=== PATIENT | male | born 1955 | race Caucasian/White ===

== ENCOUNTER 2017-05-30 09:30 | Day surgery (SDC) | payer MEDICARE, OTHER ==
[~2017-05-30] VITALS: Ht 177.8 cm; Wt 96.6 kg
[~2017-05-30 09:30] MED LIST: ASPI81CH PO; ATOR40TA PO; BICA50 PO; CVS CALCIUM 501 EAC2 PO; DOXA4 PO; FINA5 PO; HYDR1TAB94 PO; Keppra750 MG PO; LISHYD1012 PO; LOPE2C PO; LOSHYD PO; LUPRON DEPOT3.75 MG INJ; METO25 PO; MULTI VITAMIN1 EACH PO; Ondansetron Odt8 MG PO; Percocet 5-3251 EACH PO; Prozac20 MG; Prozac20 MG PO; ZESTORETIC 20-1 EACH PO
[2017-05-30] MEDS ORDERED: LISI20 PO (10:30)
== END 2017-05-30 22:42 | disposition home or self-care (01) ==
LOC: ORSCMMR 09:30 → ORD 10:45 → ORSCMMR 10:45
PROVIDERS: Surgery
PROC: 02HV33Z Insertion of Infusion Device into Superior Vena Cava, Percutaneous Approach (ICD-10-PCS; principal; 2017-05-30 10:45)
DX: C61 Malignant neoplasm of prostate (principal); C79.51 Secondary malignant neoplasm of bone; I10 Essential (primary) hypertension; Z79.82 Long term (current) use of aspirin; Z79.899 Other long term (current) drug therapy
CPT/HCPCS: 77001; C1788; J0690; J1100; J1642; J2250; J2370; J2405; J3010; J7120

== ENCOUNTER 2017-06-11 00:20 | Day surgery (SDC) | payer MEDICARE, OTHER ==
[~2017-06-11 00:20] MED LIST changes: +LISI20 PO
[2017-06-11 11:53] LABS: Hematocrit 34.9 % (37.0-53.0); Hemoglobin 11.8 g/dL (13.5-17.5); Mean Corpuscular HGB 33.6 pg (26.0-34.0); Mean Corpuscular HGB Conc 33.8 g/dL (31.5-36.5); Mean Corpuscular Volume 99 fL (80-100); Mean Platelet Volume 9.7 fL (9.1-12.4); Platelet Count 147 K/mm3 (150-400); RDW Coefficient Variation 13.5 % (11.7-14.2); RDW Standard Deviation 49.1 fL (35.1-46.3); Red Blood Cell Count 3.51 M/mm3 (4.30-5.90); White Blood Cell Count 2.05 K/mm3 (4.00-11.30)
[2017-06-11 12:04] LABS: Alanine Aminotransfer (ALT/SGP 17 U/L (12-78); Albumin/Globulin Ratio 0.8 (0.8-1.8); Alk Phos 154 U/L (50-136); Anion Gap 11 mmol/L (6-16); Aspartate Aminotrans (AST/SGOT 14 U/L (12-37); Bilirubin, Total 0.8 mg/dL (0.1-1.0); Blood Urea Nitrogen 12 mg/dL (8-24); Bun/Creatinine Ratio 16.5 (12.0-20.0); CO2, Blood 26 mmol/L (21-32); Calcium, Blood 8.5 mg/dL (8.5-10.1); Chloride, Blood 98 mmol/L (98-108); Creatinine, Blood 0.73 mg/dL (0.60-1.20); Glomerular Filtration Rate >60 (60-); Glucose, Blood 99 mg/dL (70-99); Potassium, Blood 3.5 mmol/L (3.5-5.5); Sodium, Blood 135 mmol/L (136-145)
[2017-06-11] MEDS ORDERED: ZESTORETIC 20-121 EA PO (12:06)
[2017-06-11 12:21] LABS: BAND PERCENT MAN 17 % (0-8); BASOPHILS ABSOLUTE MAN 0.02 K/mm3 (0.00-0.23); BASOPHILS PERCENT MAN 1 % (0-2); EOSINOPHILS ABSOLUTE MAN 0.04 K/mm3 (0.00-0.68); EOSINOPHILS PERCENT MAN 2 % (0-6); LYMPHOCYTES % ATYPICAL MANUAL 1 % (0-0); LYMPHOCYTES ABSOLUTE MAN 0.61 K/mm3 (0.84-5.20); LYMPHOCYTES PERCENT MAN 29 % (21-46); METAMYELOCYTE ABSOLUTE MAN 0.02 K/mm3 (0.00-0.00); METAMYELOCYTE PERCENT MAN 1 % (0-0); MONOCYTES ABSOLUTE MAN 0.16 K/mm3 (0.16-1.47); MONOCYTES PERCENT MAN 8 % (4-13); NEUTROPHILS ABSOLUTE MAN 1.18 K/mm3 (1.96-9.15); SEG NEUTROPHILS PERCENT MAN 41 % (41-73); TOTAL CELLS COUNTED 100
== END 2017-06-11 11:45 | disposition home or self-care (01) ==
LOC: ATC 00:20
PROVIDERS: Internal Medicine Hematology & Oncology
DX: C61 Malignant neoplasm of prostate (principal); C79.51 Secondary malignant neoplasm of bone; C78.7 Secondary malignant neoplasm of liver and intrahepatic bile duct; C79.89 Secondary malignant neoplasm of other specified sites; Z95.828 Presence of other vascular implants and grafts; R97.21 Rising PSA following treatment for malignant neoplasm of prostate; Z92.3 Personal history of irradiation; Z12.5 Encounter for screening for malignant neoplasm of prostate; Z86.73 Personal history of transient ischemic attack (TIA), and cerebral infarction without residual deficits
CPT/HCPCS: 36591; 80053; 84153; 85025; G0103; J1642

== ENCOUNTER 2017-06-30 12:11 | Emergency (ER) | payer MEDICARE, OTHER ==
[~2017-06-30] VITALS: Ht 177.8 cm; Wt 90.7 kg
[~2017-06-30 12:11] MED LIST changes: +ZESTORETIC 20-121 EA PO
[2017-06-30 13:02] LABS: Hematocrit 30.7 % (37.0-53.0); Hemoglobin 10.3 g/dL (13.5-17.5); Mean Corpuscular HGB 34.6 pg (26.0-34.0); Mean Corpuscular HGB Conc 33.6 g/dL (31.5-36.5); Mean Corpuscular Volume 103 fL (80-100); Mean Platelet Volume 9.5 fL (9.1-12.4); Platelet Count 185 K/mm3 (150-400); RDW Coefficient Variation 15.4 % (11.7-14.2); RDW Standard Deviation 58.4 fL (35.1-46.3); Red Blood Cell Count 2.98 M/mm3 (4.30-5.90); White Blood Cell Count 15.02 K/mm3 (4.00-11.30)
[2017-06-30 13:28] LABS: Alanine Aminotransfer (ALT/SGP 25 U/L (12-78); Albumin, Blood 3.2 g/dL (3.4-5.0); Albumin/Globulin Ratio 0.8 (0.8-1.8); Alk Phos 135 U/L (50-136); Anion Gap 8 mmol/L (6-16); Aspartate Aminotrans (AST/SGOT 21 U/L (12-37); Bilirubin, Total 0.8 mg/dL (0.1-1.0); Blood Urea Nitrogen 14 mg/dL (8-24); Bun/Creatinine Ratio 25.8 (12.0-20.0); CO2, Blood 23 mmol/L (21-32); Calcium, Blood 8.4 mg/dL (8.5-10.1); Chloride, Blood 101 mmol/L (98-108); Creatinine, Blood 0.54 mg/dL (0.60-1.20); Globulin, Blood 3.9 g/dL (2.2-4.0); Glomerular Filtration Rate >60 (60-); Glucose, Blood 110 mg/dL (70-99); Potassium, Blood 4.1 mmol/L (3.5-5.5); Sodium, Blood 132 mmol/L (136-145); Total Protein, Blood 7.1 g/dL (6.4-8.2); Troponin I <0.015 ng/mL (0.000-0.040)
[2017-06-30 13:35] LABS: BAND PERCENT MAN 8 % (0-8); BASOPHILS PERCENT MAN 0 % (0-2); EOSINOPHILS PERCENT MAN 0 % (0-6); LYMPHOCYTES ABSOLUTE MAN 0.15 K/mm3 (0.84-5.20); LYMPHOCYTES PERCENT MAN 1 % (21-46); METAMYELOCYTE PERCENT MAN 2 % (0-0); MONOCYTES PERCENT MAN 2 % (4-13); NEUTROPHILS ABSOLUTE MAN 14.26 K/mm3 (1.96-9.15); SEG NEUTROPHILS PERCENT MAN 87 % (41-73); TOTAL CELLS COUNTED 100
[2017-06-30] MEDS ORDERED: METR250 PO (14:15)
[2017-06-30] MEDS ORDERED: PRED5 PO (14:15)
== END 2017-06-30 16:16 | disposition home or self-care (01) ==
LOC: ER 12:11
PROVIDERS: Emergency Medicine
DX: R07.9 Chest pain, unspecified (principal); G40.909 Epilepsy, unspecified, not intractable, without status epilepticus; Z79.899 Other long term (current) drug therapy; Z79.82 Long term (current) use of aspirin; Z79.52 Long term (current) use of systemic steroids; Z86.73 Personal history of transient ischemic attack (TIA), and cerebral infarction without residual deficits; Z87.891 Personal history of nicotine dependence; Z85.46 Personal history of malignant neoplasm of prostate
CPT/HCPCS: 36415; 71046; 71260; 80053; 84484; 85025; 93005; 93010; 96360; 99284; J7030; Q9967

== ENCOUNTER 2017-07-03 01:10 | Day surgery (SDC) | payer MEDICARE, OTHER ==
[~2017-07-03 01:10] MED LIST changes: +METR250 PO; +PRED5 PO
[2017-07-03 12:07] LABS: Hematocrit 30.9 % (37.0-53.0); Hemoglobin 10.2 g/dL (13.5-17.5); Mean Corpuscular HGB 33.2 pg (26.0-34.0); Mean Corpuscular Volume 101 fL (80-100); Mean Platelet Volume 9.6 fL (9.1-12.4); NRBC ABSOLUTE 0.05 K/mm3 (0.00-0.02); NRBC Auto 0.6 /100 WBC (0.0-0.2); Platelet Count 220 K/mm3 (150-400); RDW Coefficient Variation 15.1 % (11.7-14.2); RDW Standard Deviation 55.2 fL (35.1-46.3); Red Blood Cell Count 3.07 M/mm3 (4.30-5.90); White Blood Cell Count 8.88 K/mm3 (4.00-11.30)
[2017-07-03 12:21] LABS: Alanine Aminotransfer (ALT/SGP 22 U/L (12-78); Albumin, Blood 3.3 g/dL (3.4-5.0); Albumin/Globulin Ratio 0.8 (0.8-1.8); Alk Phos 133 U/L (50-136); Anion Gap 10 mmol/L (6-16); Aspartate Aminotrans (AST/SGOT 12 U/L (12-37); Bilirubin, Total 0.6 mg/dL (0.1-1.0); Blood Urea Nitrogen 14 mg/dL (8-24); Bun/Creatinine Ratio 19.4 (12.0-20.0); CO2, Blood 25 mmol/L (21-32); Calcium, Blood 8.9 mg/dL (8.5-10.1); Chloride, Blood 96 mmol/L (98-108); Creatinine, Blood 0.72 mg/dL (0.60-1.20); Globulin, Blood 3.9 g/dL (2.2-4.0); Glomerular Filtration Rate >60 (60-); Glucose, Blood 107 mg/dL (70-99); Potassium, Blood 3.5 mmol/L (3.5-5.5); Sodium, Blood 131 mmol/L (136-145); Total Protein, Blood 7.2 g/dL (6.4-8.2)
[2017-07-03 12:42] LABS: BAND PERCENT MAN 6 % (0-8); BASOPHILS PERCENT MAN 0 % (0-2); EOSINOPHILS PERCENT MAN 0 % (0-6); LYMPHOCYTES ABSOLUTE MAN 0.62 K/mm3 (0.84-5.20); LYMPHOCYTES PERCENT MAN 7 % (21-46); MONOCYTES ABSOLUTE MAN 1.59 K/mm3 (0.16-1.47); MONOCYTES PERCENT MAN 18 % (4-13); MYELOCYTE ABSOLUTE MAN 0.08 K/mm3 (0.00-0.00); MYELOCYTE PERCENT MAN 1 % (0-0); NEUTROPHILS ABSOLUTE MAN 6.57 K/mm3 (1.96-9.15); SEG NEUTROPHILS PERCENT MAN 68 % (41-73); TOTAL CELLS COUNTED 100
== END 2017-07-03 11:45 | disposition home or self-care (01) ==
LOC: ATC 01:10
PROVIDERS: Internal Medicine Hematology & Oncology
DX: C61 Malignant neoplasm of prostate (principal); C79.51 Secondary malignant neoplasm of bone; I10 Essential (primary) hypertension; I69.851 Hemiplegia and hemiparesis following other cerebrovascular disease affecting right dominant side
CPT/HCPCS: 36591; 80053; 84153; 85025; J1642

== ENCOUNTER 2017-07-24 08:08 | Emergency (ER) | payer MEDICARE, OTHER ==
[~2017-07-24] VITALS: Ht 180.3 cm; Wt 95.2 kg
[2017-07-24 09:18] LABS: Hematocrit 26.9 % (37.0-53.0); Mean Corpuscular HGB 34.5 pg (26.0-34.0); Mean Corpuscular HGB Conc 33.5 g/dL (31.5-36.5); Mean Corpuscular Volume 103 fL (80-100); Mean Platelet Volume 9.8 fL (9.1-12.4); NRBC ABSOLUTE 0.03 K/mm3 (0.00-0.02); NRBC Auto 0.8 /100 WBC (0.0-0.2); Platelet Count 146 K/mm3 (150-400); RDW Coefficient Variation 15.7 % (11.7-14.2); RDW Standard Deviation 59.7 fL (35.1-46.3); Red Blood Cell Count 2.61 M/mm3 (4.30-5.90); White Blood Cell Count 3.63 K/mm3 (4.00-11.30)
[2017-07-24 09:39] LABS: Alanine Aminotransfer (ALT/SGP 15 U/L (12-78); Albumin, Blood 2.8 g/dL (3.4-5.0); Albumin/Globulin Ratio 0.8 (0.8-1.8); Alk Phos 85 U/L (50-136); Anion Gap 7 mmol/L (6-16); Aspartate Aminotrans (AST/SGOT 12 U/L (12-37); Bilirubin, Total 0.6 mg/dL (0.1-1.0); Blood Urea Nitrogen 19 mg/dL (8-24); Bun/Creatinine Ratio 13.4 (12.0-20.0); CO2, Blood 26 mmol/L (21-32); Calcium, Blood 8.1 mg/dL (8.5-10.1); Chloride, Blood 98 mmol/L (98-108); Creatinine, Blood 1.42 mg/dL (0.60-1.20); Globulin, Blood 3.4 g/dL (2.2-4.0); Glomerular Filtration Rate 54 (60-); Glucose, Blood 106 mg/dL (70-99); Potassium, Blood 3.7 mmol/L (3.5-5.5); Sodium, Blood 131 mmol/L (136-145); Total Protein, Blood 6.2 g/dL (6.4-8.2); Troponin I <0.015 ng/mL (0.000-0.040)
[2017-07-24 09:45] LABS: BAND PERCENT MAN 10 % (0-8); BASOPHILS PERCENT MAN 0 % (0-2); EOSINOPHILS PERCENT MAN 0 % (0-6); LYMPHOCYTES ABSOLUTE MAN 0.54 K/mm3 (0.84-5.20); LYMPHOCYTES PERCENT MAN 15 % (21-46); METAMYELOCYTE ABSOLUTE MAN 0.07 K/mm3 (0.00-0.00); METAMYELOCYTE PERCENT MAN 2 % (0-0); MONOCYTES ABSOLUTE MAN 0.36 K/mm3 (0.16-1.47); MONOCYTES PERCENT MAN 10 % (4-13); NEUTROPHILS ABSOLUTE MAN 2.64 K/mm3 (1.96-9.15); SEG NEUTROPHILS PERCENT MAN 63 % (41-73); TOTAL CELLS COUNTED 100
== END 2017-07-24 11:47 | disposition home or self-care (01) ==
LOC: ER 08:08
PROVIDERS: Emergency Medicine
DX: S09.90XA Unspecified injury of head, initial encounter (principal); E86.0 Dehydration; D64.9 Anemia, unspecified; G40.909 Epilepsy, unspecified, not intractable, without status epilepticus; Z86.73 Personal history of transient ischemic attack (TIA), and cerebral infarction without residual deficits; Z98.890 Other specified postprocedural states; Z79.899 Other long term (current) drug therapy; Z79.82 Long term (current) use of aspirin; W18.09XA Striking against other object with subsequent fall, initial encounter
CPT/HCPCS: 36415; 51798; 80053; 84484; 85025; 93005; 93010; 99284; J1642; J7120

== ENCOUNTER 2017-07-28 11:34 | Inpatient (IN) | payer MEDICARE, OTHER ==
[~2017-07-28] VITALS: Ht 170.2 cm; Wt 97.0 kg
[2017-07-28 12:37] LABS: BASOPHILS ABSOLUTE AUTO 0.04 K/mm3 (0.00-0.23); BASOPHILS PERCENT AUTO 0 % (0-2); EOSINOPHILS ABSOLUTE AUTO 0.01 K/mm3 (0.00-0.68); EOSINOPHILS PERCENT AUTO 0 % (0-6); Hemoglobin 8.4 g/dL (13.5-17.5); IMMATURE GRAN ABSOLUTE AUTO 0.42 K/mm3 (0.00-0.10); IMMATURE GRAN PERCENT AUTO 3 % (0-1); LYMPHOCYTES ABSOLUTE AUTO 0.42 K/mm3 (0.84-5.20); LYMPHOCYTES PERCENT AUTO 3 % (21-46); MONOCYTES ABSOLUTE AUTO 0.98 K/mm3 (0.16-1.47); MONOCYTES PERCENT AUTO 6 % (4-13); Mean Corpuscular HGB 34.3 pg (26.0-34.0); Mean Corpuscular HGB Conc 32.3 g/dL (31.5-36.5); Mean Platelet Volume 9.3 fL (9.1-12.4); NEUTROPHILS ABSOLUTE AUTO 14.48 K/mm3 (1.96-9.15); NEUTROPHILS PERCENT AUTO 89 % (41-73); Platelet Count 199 K/mm3 (150-400); RDW Coefficient Variation 15.9 % (11.7-14.2); RDW Standard Deviation 61.3 fL (35.1-46.3); Red Blood Cell Count 2.45 M/mm3 (4.30-5.90); White Blood Cell Count 16.35 K/mm3 (4.00-11.30)
[2017-07-28 12:53] LABS: International Normalized Ratio 0.98; Prothrombin Time Results 10.2 Sec (9.7-11.5)
[2017-07-28 12:56] LABS: Mean Corpuscular Volume 106 fL (80-100)
[2017-07-28 12:59] LABS: Alanine Aminotransfer (ALT/SGP 15 U/L (12-78); Albumin, Blood 2.7 g/dL (3.4-5.0); Albumin/Globulin Ratio 0.8 (0.8-1.8); Alk Phos 90 U/L (50-136); Anion Gap 10 mmol/L (6-16); Aspartate Aminotrans (AST/SGOT 15 U/L (12-37); Bilirubin, Total 0.3 mg/dL (0.1-1.0); Blood Urea Nitrogen 14 mg/dL (8-24); Bun/Creatinine Ratio 16.3 (12.0-20.0); CO2, Blood 26 mmol/L (21-32); Calcium, Blood 8.6 mg/dL (8.5-10.1); Chloride, Blood 101 mmol/L (98-108); Creatinine, Blood 0.86 mg/dL (0.60-1.20); Globulin, Blood 3.6 g/dL (2.2-4.0); Glomerular Filtration Rate >60 (60-); Glucose, Blood 93 mg/dL (70-99); Potassium, Blood 3.4 mmol/L (3.5-5.5); Sodium, Blood 137 mmol/L (136-145); Total Protein, Blood 6.3 g/dL (6.4-8.2)
[2017-07-28] MEDS ORDERED: METR500 PO (13:53)
[2017-07-28] MEDS ORDERED: PRED5 PO (13:54)
[2017-07-28] MEDS ORDERED: METO10 PO (13:56)
[2017-07-28] MEDS ORDERED: LOPE2C PO (13:56)
[2017-07-28] MEDS ORDERED: Zofran8 MG PO (13:57)
[2017-07-28 18:38] LABS: Hematocrit 25.1 % (37.0-53.0); Hemoglobin 8.2 g/dL (13.5-17.5)
[2017-07-29 00:02] LABS: Hematocrit 25.4 % (37.0-53.0); Hemoglobin 8.2 g/dL (13.5-17.5)
[2017-07-29 05:29] LABS: BASOPHILS ABSOLUTE AUTO 0.03 K/mm3 (0.00-0.23); BASOPHILS PERCENT AUTO 0 % (0-2); EOSINOPHILS ABSOLUTE AUTO 0.01 K/mm3 (0.00-0.68); EOSINOPHILS PERCENT AUTO 0 % (0-6); Hematocrit 24.2 % (37.0-53.0); Hemoglobin 7.9 g/dL (13.5-17.5); IMMATURE GRAN ABSOLUTE AUTO 0.29 K/mm3 (0.00-0.10); IMMATURE GRAN PERCENT AUTO 2 % (0-1); LYMPHOCYTES PERCENT AUTO 4 % (21-46); MONOCYTES ABSOLUTE AUTO 0.76 K/mm3 (0.16-1.47); MONOCYTES PERCENT AUTO 6 % (4-13); Mean Corpuscular HGB 34.6 pg (26.0-34.0); Mean Corpuscular HGB Conc 32.6 g/dL (31.5-36.5); Mean Corpuscular Volume 106 fL (80-100); Mean Platelet Volume 9.1 fL (9.1-12.4); NEUTROPHILS ABSOLUTE AUTO 12.31 K/mm3 (1.96-9.15); NEUTROPHILS PERCENT AUTO 89 % (41-73); Platelet Count 167 K/mm3 (150-400); RDW Coefficient Variation 15.9 % (11.7-14.2); RDW Standard Deviation 61.9 fL (35.1-46.3); Red Blood Cell Count 2.28 M/mm3 (4.30-5.90)
[2017-07-29 05:49] LABS: Alanine Aminotransfer (ALT/SGP 13 U/L (12-78); Albumin, Blood 2.3 g/dL (3.4-5.0); Albumin/Globulin Ratio 0.7 (0.8-1.8); Alk Phos 79 U/L (50-136); Anion Gap 7 mmol/L (6-16); Aspartate Aminotrans (AST/SGOT 14 U/L (12-37); Bilirubin, Total 0.2 mg/dL (0.1-1.0); Blood Urea Nitrogen 7 mg/dL (8-24); Bun/Creatinine Ratio 9.4 (12.0-20.0); CO2, Blood 25 mmol/L (21-32); Calcium, Blood 7.4 mg/dL (8.5-10.1); Chloride, Blood 111 mmol/L (98-108); Creatinine, Blood 0.74 mg/dL (0.60-1.20); Globulin, Blood 3.1 g/dL (2.2-4.0); Glomerular Filtration Rate >60 (60-); Glucose, Blood 86 mg/dL (70-99); Sodium, Blood 143 mmol/L (136-145); Total Protein, Blood 5.4 g/dL (6.4-8.2)
[2017-07-29 11:46] LABS: Hematocrit 23.3 % (37.0-53.0); Hemoglobin 7.4 g/dL (13.5-17.5)
[2017-07-30 04:04] LABS: Hematocrit 24.2 % (37.0-53.0); Hemoglobin 7.8 g/dL (13.5-17.5); Mean Corpuscular HGB 34.4 pg (26.0-34.0); Mean Corpuscular HGB Conc 32.2 g/dL (31.5-36.5); Mean Corpuscular Volume 107 fL (80-100); Mean Platelet Volume 9.2 fL (9.1-12.4); Platelet Count 169 K/mm3 (150-400); RDW Coefficient Variation 16.2 % (11.7-14.2); RDW Standard Deviation 63.5 fL (35.1-46.3); Red Blood Cell Count 2.27 M/mm3 (4.30-5.90); White Blood Cell Count 12.33 K/mm3 (4.00-11.30)
[2017-07-30 04:10] LABS: Source, Urine Clean Catch
[2017-07-30 04:13] LABS: Bilirubin, Urine Neg (Neg); Blood, Urine Neg (Neg); Glucose Qualitative, Urine Neg (Neg); Ketones, Urine Neg (Neg); Leukocyte Esterase, Urine Neg (Neg); Nitrite, Urine Neg (Neg); Protein, Urine Neg (Neg); Urobilinogen, Urine NORM (Normal)
[2017-07-30 04:16] LABS: Appearance, Urine Clear (Clear); Color, Urine Yellow (P-Yellow)
[2017-07-30 04:23] LABS: BAND PERCENT MAN 12 % (0-8); BASOPHILS PERCENT MAN 0 % (0-2); EOSINOPHILS PERCENT MAN 0 % (0-6); LYMPHOCYTES ABSOLUTE MAN 0.36 K/mm3 (0.84-5.20); LYMPHOCYTES PERCENT MAN 3 % (21-46); METAMYELOCYTE ABSOLUTE MAN 0.12 K/mm3 (0.00-0.00); METAMYELOCYTE PERCENT MAN 1 % (0-0); MONOCYTES ABSOLUTE MAN 0.36 K/mm3 (0.16-1.47); MONOCYTES PERCENT MAN 3 % (4-13); NEUTROPHILS ABSOLUTE MAN 11.46 K/mm3 (1.96-9.15); SEG NEUTROPHILS PERCENT MAN 81 % (41-73); TOTAL CELLS COUNTED 100
[2017-07-30] MEDS ORDERED: OMEPRAZOLE MAGN20 MG PO (11:20)
== END 2017-07-30 11:40 | disposition home or self-care (01) | DRG 378 ==
LOC: ER 11:34 → PCU 14:28
PROVIDERS: Emergency Medicine; Internal Medicine; Internal Medicine Gastroenterology; Student in an Organized Health Care Education/Training Program
PROC: 3E0234Z Introduction of Serum, Toxoid and Vaccine into Muscle, Percutaneous Approach (ICD-10-PCS; 2017-07-29)
PROC: 0DB68ZX Excision of Stomach, Via Natural or Artificial Opening Endoscopic, Diagnostic (ICD-10-PCS; principal; 2017-07-29 21:30)
DX: K25.4 Chronic or unspecified gastric ulcer with hemorrhage (principal); C79.51 Secondary malignant neoplasm of bone; C61 Malignant neoplasm of prostate; K29.81 Duodenitis with bleeding; K20.9 Esophagitis, unspecified; I69.320 Aphasia following cerebral infarction; Z23 Encounter for immunization; Z66 Do not resuscitate; E87.6 Hypokalemia; F32.9 Major depressive disorder, single episode, unspecified; I10 Essential (primary) hypertension
CPT/HCPCS: 36415; 74176; 80053; 81003; 85014; 85018; 85025; 85610; 85730; 86850; 86900; 86901; 87040; 88305; 88342; 93005; 93010; 96361; 96374; 96375; 96376; 99285; C9113; J2405; J3010; J3480; J7030; J7120